=== PATIENT | female | born 1930 | race Caucasian/White ===

== ENCOUNTER 2018-03-22 16:33 | Inpatient (IN) ==
[2018-03-23] MEDS ORDERED: Mag Hydrox/Al Hydrox/Simeth 30 ML UDC PO PRN (18:34)
[2018-03-23] MEDS: *HR* OxyCODONE/APAP 5/325 TABLET PO PRN (20:32)
[2018-03-23] MEDS: Beclomethasone 40mcg MDI IH SCH (23:16)
[2018-03-24] MEDS: Acetaminophen 325 MG TABLET PO PRN (02:00)
[2018-03-24 05:44] LABS: Basophils % 0.2 %; Eosinophils # 0.3 K/mcL (0.0-0.6); Eosinophils % 3.1 %; Hematocrit 29.7 % (35.3-44.9); Hemoglobin 10.1 g/dL (11.5-15.4); Immature Granulocytes % 0.7 % (0-4); Lymphocytes # 0.7 K/mcL (0.6-4.6); Lymphocytes % 8.2 %; Mean Corpuscular Hemoglobin 29.8 pg (28.0-33.3); Mean Corpuscular Volume 87.6 fL (83.0-100.0); Mean Platelet Volume 8.4 fL (9.4-12.4); Monocytes # 0.7 K/mcL (0.0-1.3); Monocytes % 8.8 %; Neutrophils # 6.4 K/mcL (1.6-8.9); Platelet Count 264 K/mcL (140-400); Red Blood Count 3.39 M/mcL (3.82-4.97); Red Cell Distribution Width 12.7 % (11.5-14.5)
[2018-03-24 05:48] LABS: INR 1.2; Prothrombin Time 13.9 Seconds (9.4-12.1)
[2018-03-24 05:51] LABS: Activated Partial Thrombo Time 28.1 Seconds (26.0-36.0)
[2018-03-24 06:00] LABS: BUN/Creatinine Ratio 27 (6-26); Blood Urea Nitrogen 18 mg/dL (8-23); Calcium 8.6 mg/dL (8.6-10.3); Carbon Dioxide 27 mEq/L (23-29); Chloride 95 mEq/L (98-107); Glucose 95 mg/dL (70-105); Osmolality,Calculated 268 (280-300); Potassium 4.2 mEq/L (3.5-5.1); Sodium 128 mEq/L (136-145); eGFR For Non-African Americans > 60 (> 60)
[2018-03-24] MEDS: *HR* OxyCODONE/APAP 5/325 TABLET PO PRN ×3 (06:25→20:58)
[2018-03-24] MEDS: *HR* Heparin 5,000 UNIT/ML VIAL SQ SCH ×2 (06:26→18:01)
[2018-03-24] MEDS: Ascorbic Acid 500 MG TABLET PO SCH (08:47)
[2018-03-24] MEDS: Vitamin B Complex/Vit C/Vit E 1 EACH TABLET PO SCH (08:47)
[2018-03-24] MEDS: Aspirin Enteric Coated 81 MG Tablet PO SCH (08:48)
[2018-03-24] MEDS: Patient Taking Own Medication 1 EACH PO SCH (08:59)
--- NOTE | 2018-03-24 10:27 | Internal Med History&Physical ---
Date of Encounter: 03/24/18 Time of Encounter: 10:23 Assessment and Plan (1) S/P total hip arthroplasty Current visit: Yes Status: Acute Patient is admitted to rehabilitation for physical therapy secondary to deconditioning after right hip arthroplasty. Surgical incision appears dry and intact with dressing in place and small amount of ecchymosis surrounding incision. Noted slight swelling to entire right leg. Patient has been using abduction pillow while in bed. Patient complaints of increased pain today when mobilizing with physical therapy. We will review patient's current pain medications. We will continue on current therapy and continue with current plan of care Qualifiers: Laterality: right Qualified Code(s): Z96.641 - Presence of right artificial hip joint (2) Hypoxia Current visit: Yes Status: Acute Patient continues to require oxygen postoperatively after her right hip arthroplasty. Patient was placed on room air for several minutes his morning and her oxygen dropped to 88%. We will continue to mobilize patient and continue to wean oxygen as tolerated. Patient denies any productive cough or dyspnea. Afebrile. We will continue to use incentive spirometer hourly (3) HTN (hypertension) Current visit: Yes Status: Chronic Vital signs of been stable. We will continue with current medications. Qualifiers: Hypertension type: essential hypertension Qualified Code(s): I10 - Essential (primary) hypertension (4) Hyponatremia Current visit: Yes Status: Acute Today's sodium was 128. We will continue to monitor sodiums with serial labs over the next week. Patient remains asymptomatic. (5) Constipation Current visit: Yes Status: Acute Patient states no BM in 4 days. We will review her scheduled laxatives and give Dulcolax tabs now. Abdomen is slightly distended but remains soft and nontender. Patient denies any abdominal cramping. Patient states a history of constipation and that she uses Senokot at home Qualifiers: Constipation type: unspecified constipation type Qualified Code(s): K59.00 - Constipation, unspecified Internal Medicine - H&P: HPI Chief complaint: right hip replacement Admitted From: Intrahospital Transfer Plans for Post Hospital Care: Home History of present illness: Ms. Saleh is a 88 year old female who presented with right hip pain for approximately one week. The patient was found to have on the hip x-ray an acute transverse displaced and medial impacted fracture of the right femoral subcapital region. She was seen by orthopedics and it was decided to take the patient to the OR on 03/21/2018 for right hip hemiarthroplasty which was tolerated well. Patient did well postoperatively. The patient was started on aspirin by orthopedics which will be continued for the current time. The patient also has chronic somatic hyponatremia that should be monitored as an outpatient. The patient also developed symptoms of a urinary tract infection culture is currently pending. She was started empirically on Cipro 250 mg twice a day for 3 total days which improved her symptoms. Records show patient remained on oxygen postoperatively and continues to have mild hypoxia when on room air. Patient appears relaxed but complaints of increasing pain when mobilizing. Patient states while at rest that her pain is tolerable. Patient denies any dyspnea or productive cough. Denies any chest discomforts or palpitations. Patient continues to be on 2 L of oxygen which continues to be weaned postoperatively. She was placed on room air with a saturation of 88%. Patient also has complaint of constipation stating she has not had a BM in 4 days. Patient denies any abdominal cramping and states that she has been passing flatus. Abdomen is slightly distended, nontender and soft. She denies any dysuria. Afebrile. Patient has been participating in physical therapy starting today and states that it has been progressing well. Past Med Surg Social Fam HX - Past Medical History Medical history: arthritis, asthma, cancer, hyperlipidemia, hypertension Additional medical history: hypothyroidism, bleeding hemorrhoids, lumpectomy right breast 20 years ago Psychiatric history: no psych history - Past Surgical History Surgical History: knee replacement, other Additional surgical history: right knee, lumpectomy, left hip replacement - Social History Smoking Status: Never smoker Alcohol use: none Drug use: none - Family History Mother Living Status: Hx Family Cancer: Yes Father Hx Family Cardiac Disorders: Yes Internal Medicine - H&P: Meds Ascorbate Calcium [Vitamin C] 500 mg PO DAILY 08/23/17 [History] Beclomethasone Diprop 40mcg [QVAR 40 mcg] 1 puff IH BID 08/23/17 [History] Cartilage/Collagen/Bor/Hyalur [Joint Health Tablet] 1 tab PO BID 08/23/17 [ History] Carvedilol 12.5 mg PO BID 08/23/17 [History] Garlic [Daily Garlic Once-A-Day] 400 mg PO DAILY 08/23/17 [History] Gluc/Andrew-MSM#1/C/Quentin/Anand/Bor [Osteo Bi-Flex Caplet] 1 tab PO DAILY 08/23/17 [ History] Lecithin [Gram-O-Leci] 1,000 mg PO DAILY 08/23/17 [History] NIFEdipine [Afeditab Cr] 60 mg PO DAILY 08/23/17 [History] [place]-3/Dha/Epa/Fish Oil [[place] 3 500 Softgel] 1 tab PO DAILY 08/23/17 [History] Ubidecarenone [Co Q-10] 50 mg PO DAILY 08/23/17 [History] Vitamin B Complex [B Complex] 1 tab PO DAILY 08/23/17 [History] Levothyroxine [Synthroid] 75 mcg PO 0630 03/21/18 [History] Aspirin Enteric Coated [Aspirin EC] 162 mg PO DAILY 30 Days #30 tablet. [Rx] Ciprofloxacin [Cipro] 250 mg PO BID 2 Days #4 tablet 03/23/18 [Rx] MOM Conc [MILK OF MAGNESIA conc] 5 ml PO HS PRN [id number] 03/23/18 [Rx] OxyCODONE/APAP 5/325 [Percocet 5/325 MG] 1 each PO Q6HR PRN 3 Days #12 tablet [Rx] 3 Allergy/AdvReac Type Severity Reaction Status Date / Time No Known Allergies Allergy Verified 03/21/18 13:10 All Systems PM: A 10-system review of systems was performed and is negative for pertinent findings except as documented above in the HPI. - Constitutional Constitutional: as per HPI, no chills, no fever(s), no night sweats - EENT Eyes: no change in vision, no discharge, no pain, no photophobia Ears: no ear discharge, no ear pain, no tinnitus Nose, mouth and throat: no dysphagia, no nasal discharge, no neck pain, no sore throat - Cardiovascular Cardiovascular ROS IM: as per HPI, no chest pain, no diaphoresis, no dyspnea, no lightheadedness, no palpitations, no syncope - Respiratory Respiratory: as per HPI, no cough, no dyspnea, no wheezing, no excessive phlegm production - Gastrointestinal Gastrointestinal: as per HPI, no abdominal pain, no diarrhea, no hematemesis, no hematochezia, no melena, no nausea, no vomiting - Genitourinary Genitourinary: as per HPI, no change in urinary stream, no dysuria, no flank pain, no hematuria - Musculoskeletal Musculoskeletal ROS IM: no numbness, no tingling - Integumentary Integumentary IM: no rash, no unusual bruising - Neurological Neurological ROS: no confusion, no convulsions, no focal weakness, no numbness, no tingling, no tremor(s) - Hematologic/Lymphatic Hematologic/Lymphatic: no easy bruising - Constitutional Vitals: Temp Pulse Resp BP Pulse Ox 98 F 75 15 101/55 94 03/24/18 06:50 03/24/18 06:50 03/24/18 06:50 03/24/18 06:50 03/24/18 06:50 General appearance: Present: A&O X 3, pleasant - Head Head exam: Present: atraumatic, normocephalic - Eye Eye exam: Present: PERRL, conjuntiva pink, sclera anicteric Pupils: Present: PERRL - Neck Neck exam general surgery: Present: supple, trachea midline. Absent: lymphadenopathy - Respiratory Respiratory exam: Present: CTAB. Absent: accessory muscle use, rales, rhonchi, wheezes - Cardiovascular Cardiovascular exam: Present: RRR, +S1, +S2. Absent: diastolic murmur, gallop, rubs, systolic murmur - GI/Abdominal GI/Abdominal exam: Present: normal bowel sounds, soft, no peritoneal signs. Absent: distended, tenderness Additional comments: Abdomen is slightly distended but remains soft and nontender with bowel sounds heard to all quadrants. - Extremities Exam Extremities exam: Present: warm, radial pulses palpable and symmetrical. Absent : calf tenderness, cyanotic, pedal edema Additional comments: Right hip with dressing dry and intact. Noted ecchymosis surrounding surgical incision and slight edema to entire right leg. Abduction pillow in place - Neurological Exam Neurological exam: Present: CN II-XII intact, oriented X3, no focal deficits. Absent: pronater drift, facial droop, speech deficit - Skin Skin exam: Present: dry, intact Internal Med - H&P Results - Labs CBC & Chem 7: 03/24/18 05:40 03/24/18 05:40 Labs: Short CBC 03/24/18 Range/Units 05:40 WBC 8.1 (4.3-11.1) K/mcL Hgb 10.1 L (11.5-15.4) g/dL Hct 29.7 L (35.3-44.9) % Plt Count 264 (140-400) K/mcL Neutrophils # 6.4 (1.6-8.9) K/mcL BMP 03/24/18 05:40 Sodium 128 L Potassium 4.2 Chloride 95 L Carbon Dioxide 27 BUN 18 Creatinine 0.67 Glucose 95 Calcium 8.6
[2018-03-24] MEDS: NIFEdipine XL (24 HR) 60 MG TAB.ER.24 PO SCH (12:37)
[2018-03-24] MEDS: Beclomethasone 40mcg MDI IH SCH ×2 (12:37→21:02)
[2018-03-25] MEDS: *HR* OxyCODONE/APAP 5/325 TABLET PO PRN ×3 (04:39→17:41)
[2018-03-25] MEDS: *HR* Heparin 5,000 UNIT/ML VIAL SQ SCH ×2 (04:41→16:55)
[2018-03-25] MEDS: Vitamin B Complex/Vit C/Vit E 1 EACH TABLET PO SCH (08:33)
[2018-03-25] MEDS: Aspirin Enteric Coated 81 MG Tablet PO SCH (08:33)
[2018-03-25] MEDS: Ascorbic Acid 500 MG TABLET PO SCH (08:34)
[2018-03-25] MEDS: Patient Taking Own Medication 1 EACH PO SCH (08:36)
[2018-03-25] MEDS: NIFEdipine XL (24 HR) 60 MG TAB.ER.24 PO SCH (08:39)
[2018-03-25] MEDS: Beclomethasone 40mcg MDI IH SCH ×2 (08:39→20:38)
--- NOTE | 2018-03-25 10:22 | Internal Med Progress Note ---
Date of Encounter: 03/25/18 Time of Encounter: 10:20 - Assessment and plan (1) S/P total hip arthroplasty Current Visit: Yes Status: Acute Assessment and plan: Right hip surgical incision appears healthy and intact with moderate amount of ecchymosis surrounding the incision. noted slight edema to right entire leg. patient continues to have moderate pain during mobilization but states that her pain is tolerable with current medications ordered. we will continue with current physical therapy and mobilization. Qualifiers: Laterality: right Qualified Code(s): Z96.641 - Presence of right artificial hip joint (2) HTN (hypertension) Current Visit: Yes Status: Chronic Qualifiers: Hypertension type: essential hypertension Qualified Code(s): I10 - Essential (primary) hypertension (3) Hyponatremia Current Visit: Yes Status: Acute Assessment and plan: No acute issues. Patient's last sodium was 128. We will reorder labs from the morning to follow. Patient remains asymptomatic. (4) Constipation Current Visit: Yes Status: Acute Assessment and plan: Patient continues to have issues with constipation with no BM after starting on MiraLAX. We will give patient a bottle of mag citrate today and monitor for results. Abdomen remains negative on exam and patient denies any abdominal cramping. Qualifiers: Constipation type: unspecified constipation type Qualified Code(s): K59.00 - Constipation, unspecified - Time Spent With Patient less than 15 minutes - Subjective Interval history: Patient appears relaxed and currently complains of slight pain to her right hip surgical site, which she states increased after her physical therapy session this morning. Patient states that her pain is tolerable with current medications. Patient states she continues not to have any BM with current changes in her scheduled laxatives. Denies any abdominal cramping - Constitutional Vitals: Temp Pulse Resp BP Pulse Ox 98.5 F 77 16 112/67 96 03/25/18 07:00 03/25/18 07:00 03/25/18 07:00 03/25/18 07:00 03/25/18 07:00 General appearance: Present: A&O X 3, pleasant - Head Head exam: Present: atraumatic, normocephalic - Eye Eye exam: Present: PERRL, conjuntiva pink, sclera anicteric Pupils: Present: PERRL - Neck Neck exam general surgery: Present: supple, trachea midline. Absent: lymphadenopathy - Respiratory Respiratory exam: Present: CTAB. Absent: accessory muscle use, rales, rhonchi, wheezes - Cardiovascular Cardiovascular exam: Present: RRR, +S1, +S2. Absent: diastolic murmur, gallop, rubs, systolic murmur - GI/Abdominal GI/Abdominal exam: Present: normal bowel sounds, soft, no peritoneal signs. Absent: distended, tenderness - Extremities Exam Extremities exam: Present: warm, radial pulses palpable and symmetrical. Absent : calf tenderness, cyanotic, pedal edema Additional comments: Right hip surgical site appears healthy and intact with moderate ecchymosis noted surrounding the incision. Noted slight edema to the entire right leg. - Neurological Exam Neurological exam: Present: CN II-XII intact, oriented X3, no focal deficits. Absent: pronater drift, facial droop, speech deficit - Skin Skin exam: Present: dry, intact Internal Medicine: Result - Labs CBC & Chem 7: 03/24/18 05:40 03/24/18 05:40 - ABG Interpretation ABG results: PT/INR, D-dimer PT 13.9 Seconds (9.4-12.1) H 03/24/18 05:40 Consult Discharge Plan - Plan Referrals: Jer Ramirez MD [Primary Care Provider] -
[2018-03-25] MEDS: Acetaminophen 325 MG TABLET PO PRN (14:43)
[2018-03-25] MEDS: Sennosides 8.6 MG TABLET PO SCH (20:34)
[2018-03-26 05:35] LABS: Hemoglobin 9.7 g/dL (11.5-15.4); Mean Corpuscular HGB Conc 33.4 g/dL (31.6-35.5); Mean Corpuscular Hemoglobin 29.5 pg (28.0-33.3); Mean Corpuscular Volume 88.1 fL (83.0-100.0); Mean Platelet Volume 8.2 fL (9.4-12.4); Platelet Count 373 K/mcL (140-400); Red Blood Count 3.29 M/mcL (3.82-4.97); Red Cell Distribution Width 12.9 % (11.5-14.5)
[2018-03-26] MEDS: *HR* Heparin 5,000 UNIT/ML VIAL SQ SCH ×2 (05:49→18:48)
[2018-03-26 05:55] LABS: Alanine Aminotransferase 8 Units/L (7-52); Albumin 2.7 g/dL (3.5-5.7); Albumin/Globulin Ratio 1.1 (1.1-2.2); Alkaline Phosphatase 74 Units/L (34-104); Aspartate Amino Transferase 21 Units/L (13-39); BUN/Creatinine Ratio 30 (6-26); Bilirubin,Total 0.5 mg/dL (0.3-1.0); Blood Urea Nitrogen 18 mg/dL (8-23); Calcium 8.7 mg/dL (8.6-10.3); Carbon Dioxide 29 mEq/L (23-29); Chloride 97 mEq/L (98-107); Globulin 2.4 g/dL (2.4-3.5); Glucose 104 mg/dL (70-105); Magnesium 2.5 mg/dL (1.6-2.6); Osmolality,Calculated 276 (280-300); Potassium 3.8 mEq/L (3.5-5.1); Sodium 132 mEq/L (136-145); Total Protein 5.1 g/dL (6.4-8.9); eGFR For Non-African Americans > 60 (> 60)
[2018-03-26] MEDS: *HR* OxyCODONE/APAP 5/325 TABLET PO PRN ×3 (06:14→22:41)
[2018-03-26] MEDS: Acetaminophen 325 MG TABLET PO PRN (10:26)
[2018-03-26] MEDS: Aspirin Enteric Coated 81 MG Tablet PO SCH (10:26)
[2018-03-26] MEDS: Vitamin B Complex/Vit C/Vit E 1 EACH TABLET PO SCH (10:26)
[2018-03-26] MEDS: NIFEdipine XL (24 HR) 60 MG TAB.ER.24 PO SCH (10:26)
[2018-03-26] MEDS: Sennosides 8.6 MG TABLET PO SCH ×2 (10:27→22:41)
[2018-03-26] MEDS: Ascorbic Acid 500 MG TABLET PO SCH (10:27)
[2018-03-26] MEDS: Patient Taking Own Medication 1 EACH PO SCH (10:27)
--- NOTE | 2018-03-26 11:23 | Internal Med Progress Note ---
Date of Encounter: 03/26/18 Time of Encounter: 11:00 - Assessment and plan (1) HTN (hypertension) Current Visit: Yes Status: Chronic Qualifiers: Hypertension type: essential hypertension Qualified Code(s): I10 - Essential (primary) hypertension (2) Hyponatremia Current Visit: Yes Status: Acute Assessment and plan: Improving, will continue to monitor. (3) Constipation Current Visit: Yes Status: Acute Assessment and plan: Continue BM with BID Miralax for now. Qualifiers: Constipation type: unspecified constipation type Qualified Code(s): K59.00 - Constipation, unspecified (4) S/P total hip arthroplasty Current Visit: Yes Status: Acute Assessment and plan: - Continue routine care/management per PT. - Continue current pain regimen. Qualifiers: Laterality: right Qualified Code(s): Z96.641 - Presence of right artificial hip joint - Time Spent With Patient less than 15 minutes - Subjective Interval history: Right hip hurts, but overall adequately controlled with our current pain regimen. - Constitutional Vitals: Temp Pulse Resp BP Pulse Ox 98.4 F 69 17 120/63 19 03/26/18 07:31 03/26/18 07:31 03/26/18 07:31 03/26/18 07:31 03/26/18 07:31 General appearance: Present: A&O X 3, pleasant Exam: Gen: A&Ox3, NAD. HEENT: NCAT. Neck: No palpable lymphadenopathy or thyromegaly. CV: RRR, S1S2. No murmur. Capillary refill < 2 seconds. Pulm: CTAB. Abd: (+)BS. NDNT. Neuro: RLE weakness due to right hip pain, otherwise non-focal. Skin: No rash. Ext: 1(+) pitting edema in RLE. Internal Medicine: Result - Labs CBC & Chem 7: 03/26/18 05:25 03/26/18 05:25 Labs: Short CBC 03/26/18 Range/Units 05:25 WBC 6.9 (4.3-11.1) K/mcL Hgb 9.7 L (11.5-15.4) g/dL Hct 29.0 L (35.3-44.9) % Plt Count 373 (140-400) K/mcL BMP 03/26/18 05:25 Sodium 132 L Potassium 3.8 Chloride 97 L Carbon Dioxide 29 BUN 18 Creatinine 0.60 Glucose 104 Calcium 8.7 Liver Function 03/26/18 Range/Units 05:25 Total Bilirubin 0.5 (0.3-1.0) mg/dL AST 21 (13-39) Units/L ALT 8 (7-52) Units/L Alkaline Phosphatase 74 (34-104) Units/L Albumin 2.7 L (3.5-5.7) g/dL - ABG Interpretation ABG results: PT/INR, D-dimer PT 13.9 Seconds (9.4-12.1) H 03/24/18 05:40 Consult Discharge Plan - Plan Referrals: Jer Ramirez MD [Primary Care Provider] -
[2018-03-26] MEDS: Beclomethasone 40mcg MDI IH SCH ×2 (14:55→22:42)
[2018-03-27] MEDS: *HR* OxyCODONE/APAP 5/325 TABLET PO PRN ×2 (06:32→20:06)
[2018-03-27] MEDS: *HR* Heparin 5,000 UNIT/ML VIAL SQ SCH ×2 (06:32→18:01)
--- NOTE | 2018-03-27 07:40 | Internal Med Progress Note ---
Date of Encounter: 03/27/18 Time of Encounter: 07:30 - Assessment and plan (1) HTN (hypertension) Current Visit: Yes Status: Chronic Qualifiers: Hypertension type: essential hypertension Qualified Code(s): I10 - Essential (primary) hypertension (2) Hyponatremia Current Visit: Yes Status: Acute Assessment and plan: Improving, will continue to monitor. (3) Constipation Current Visit: Yes Status: Acute Assessment and plan: Continue BM with BID Miralax for now. Qualifiers: Constipation type: unspecified constipation type Qualified Code(s): K59.00 - Constipation, unspecified (4) S/P total hip arthroplasty Current Visit: Yes Status: Acute Assessment and plan: - Continue routine care/management per PT. - Continue current pain regimen. Qualifiers: Laterality: right Qualified Code(s): Z96.641 - Presence of right artificial hip joint - Time Spent With Patient less than 15 minutes - Subjective Interval history: Feeling "fine." No particular concern. - Constitutional Vitals: Temp Pulse Resp BP Pulse Ox 98.5 F 71 14 124/68 94 03/27/18 06:47 03/27/18 06:47 03/27/18 06:47 03/27/18 06:47 03/27/18 06:47 General appearance: Present: A&O X 3, pleasant Exam: Gen: A&Ox3, NAD. HEENT: NCAT. Neck: No palpable lymphadenopathy or thyromegaly. CV: RRR, S1S2. 1/6, systolic murmur appreciated. Capillary refill < 2 seconds. Pulm: CTAB. Abd: (+)BS. NDNT. Neuro: RLE weakness due to right hip pain, otherwise non-focal. Skin: No rash. Ext: 1(+) pitting edema in RLE. Internal Medicine: Result - Labs CBC & Chem 7: 03/26/18 05:25 03/26/18 05:25 - ABG Interpretation ABG results: PT/INR, D-dimer PT 13.9 Seconds (9.4-12.1) H 03/24/18 05:40 Consult Discharge Plan - Plan Referrals: Jer Ramirez MD [Primary Care Provider] -
[2018-03-27] MEDS: Acetaminophen 325 MG TABLET PO PRN (12:23)
[2018-03-27] MEDS: Vitamin B Complex/Vit C/Vit E 1 EACH TABLET PO SCH (12:23)
[2018-03-27] MEDS: NIFEdipine XL (24 HR) 60 MG TAB.ER.24 PO SCH (12:23)
[2018-03-27] MEDS: Sennosides 8.6 MG TABLET PO SCH ×2 (12:23→20:06)
[2018-03-27] MEDS: Aspirin Enteric Coated 81 MG Tablet PO SCH (12:23)
[2018-03-27] MEDS: Ascorbic Acid 500 MG TABLET PO SCH (12:24)
[2018-03-27] MEDS: Patient Taking Own Medication 1 EACH PO SCH (12:24)
[2018-03-27] MEDS: Beclomethasone 40mcg MDI IH SCH ×2 (14:25→20:08)
[2018-03-28] MEDS: *HR* OxyCODONE/APAP 5/325 TABLET PO PRN ×3 (05:14→21:43)
[2018-03-28] MEDS: *HR* Heparin 5,000 UNIT/ML VIAL SQ SCH ×2 (05:15→17:40)
[2018-03-28] MEDS: Aspirin Enteric Coated 81 MG Tablet PO SCH (08:14)
[2018-03-28] MEDS: Sennosides 8.6 MG TABLET PO SCH ×2 (08:15→20:09)
[2018-03-28] MEDS: Patient Taking Own Medication 1 EACH PO SCH (08:15)
[2018-03-28] MEDS: NIFEdipine XL (24 HR) 60 MG TAB.ER.24 PO SCH (08:16)
[2018-03-28] MEDS: Ascorbic Acid 500 MG TABLET PO SCH (08:17)
[2018-03-28] MEDS: Vitamin B Complex/Vit C/Vit E 1 EACH TABLET PO SCH (08:17)
[2018-03-28] MEDS: Beclomethasone 40mcg MDI IH SCH ×2 (08:17→20:09)
[2018-03-28 09:45] LABS: Basophils # 0.1 K/mcL (0.0-0.2); Basophils % 0.8 %; Eosinophils # 0.2 K/mcL (0.0-0.6); Hematocrit 34.8 % (35.3-44.9); Hemoglobin 11.3 g/dL (11.5-15.4); INR 1.1; Immature Granulocytes % 5.9 % (0-4); Lymphocytes # 1.5 K/mcL (0.6-4.6); Lymphocytes % 19.3 %; Mean Corpuscular HGB Conc 32.5 g/dL (31.6-35.5); Mean Corpuscular Hemoglobin 29.3 pg (28.0-33.3); Mean Corpuscular Volume 90.2 fL (83.0-100.0); Mean Platelet Volume 8.7 fL (9.4-12.4); Monocytes # 0.7 K/mcL (0.0-1.3); Monocytes % 8.8 %; Neutrophils # 4.8 K/mcL (1.6-8.9); Platelet Count 580 K/mcL (140-400); Prothrombin Time 12.5 Seconds (9.4-12.1); Red Blood Count 3.86 M/mcL (3.82-4.97); Red Cell Distribution Width 13.4 % (11.5-14.5); Segmented Neutrophils % 62.2 %
[2018-03-28 09:48] LABS: Activated Partial Thrombo Time 32.5 Seconds (26.0-36.0)
--- NOTE | 2018-03-28 09:56 | Internal Med Progress Note ---
Date of Encounter: 03/28/18 Time of Encounter: 09:30 - Assessment and plan (1) HTN (hypertension) Current Visit: Yes Status: Chronic Qualifiers: Hypertension type: essential hypertension Qualified Code(s): I10 - Essential (primary) hypertension (2) Hyponatremia Current Visit: Yes Status: Acute Assessment and plan: Improving, will continue to monitor. (3) Constipation Current Visit: Yes Status: Acute Assessment and plan: Continue BID Senna for now. Last BM was on Wednesday and the patient is asymptomatic at this time. Will consider Miralax and/or mag citrate PRN as appropriate. Qualifiers: Constipation type: unspecified constipation type Qualified Code(s): K59.00 - Constipation, unspecified (4) S/P total hip arthroplasty Current Visit: Yes Status: Acute Assessment and plan: - Continue routine care/management per PT. - Continue current pain regimen. Qualifiers: Laterality: right Qualified Code(s): Z96.641 - Presence of right artificial hip joint - Time Spent With Patient less than 15 minutes - Subjective Interval history: Feeling "good." Last BM was on Wednesday. - Constitutional Vitals: Temp Pulse Resp BP Pulse Ox 99.0 F 72 16 123/70 93 03/28/18 06:00 03/28/18 06:00 03/28/18 06:00 03/28/18 06:00 03/28/18 06:00 General appearance: Present: A&O X 3, pleasant Exam: Gen: A&Ox3, NAD. HEENT: NCAT. Neck: No palpable lymphadenopathy or thyromegaly. CV: RRR, S1S2. 1/6, systolic murmur appreciated. Capillary refill < 2 seconds. Pulm: CTAB. Abd: (+)BS. NDNT. Neuro: RLE weakness due to right hip pain, otherwise non-focal. Skin: No rash. Ext: 1(+) pitting edema in RLE. Internal Medicine: Result - Labs CBC & Chem 7: 03/26/18 05:25 03/26/18 05:25 - ABG Interpretation ABG results: PT/INR, D-dimer PT 13.9 Seconds (9.4-12.1) H 03/24/18 05:40 Consult Discharge Plan - Plan Referrals: Jer Ramirez MD [Primary Care Provider] -
[2018-03-28 10:17] LABS: BUN/Creatinine Ratio 20 (6-26); Blood Urea Nitrogen 12 mg/dL (8-23); Calcium 9.1 mg/dL (8.6-10.3); Carbon Dioxide 29 mEq/L (23-29); Chloride 99 mEq/L (98-107); Glucose 97 mg/dL (70-105); Osmolality,Calculated 280 (280-300); Potassium 3.8 mEq/L (3.5-5.1); Sodium 135 mEq/L (136-145); eGFR For Non-African Americans > 60 (> 60)
[2018-03-29] MEDS: *HR* Heparin 5,000 UNIT/ML VIAL SQ SCH ×2 (05:17→18:09)
[2018-03-29] MEDS: Aspirin Enteric Coated 81 MG Tablet PO SCH (08:23)
[2018-03-29] MEDS: Sennosides 8.6 MG TABLET PO SCH ×2 (08:23→20:46)
[2018-03-29] MEDS: Vitamin B Complex/Vit C/Vit E 1 EACH TABLET PO SCH (08:23)
[2018-03-29] MEDS: NIFEdipine XL (24 HR) 60 MG TAB.ER.24 PO SCH (08:23)
[2018-03-29] MEDS: *HR* OxyCODONE/APAP 5/325 TABLET PO PRN ×3 (08:23→20:46)
[2018-03-29] MEDS: Ascorbic Acid 500 MG TABLET PO SCH (08:24)
[2018-03-29] MEDS: Beclomethasone 40mcg MDI IH SCH ×2 (08:34→20:46)
[2018-03-29] MEDS: Patient Taking Own Medication 1 EACH PO SCH (08:36)
--- NOTE | 2018-03-29 11:16 | Internal Med Progress Note ---
Date of Encounter: 03/29/18 Time of Encounter: 06:00 - Assessment and plan (1) S/P total hip arthroplasty Current Visit: Yes Status: Acute Assessment and plan: Actually this is status post right unipolar hip replacement. She is doing fine without sign of complication. She is not progressing well with therapy. Qualifiers: Laterality: right Qualified Code(s): Z96.641 - Presence of right artificial hip joint (2) HTN (hypertension) Current Visit: Yes Status: Chronic Assessment and plan: Marginally elevated today, will follow. Qualifiers: Hypertension type: essential hypertension Qualified Code(s): I10 - Essential (primary) hypertension (3) HLD (hyperlipidemia) Current Visit: No Status: Chronic Assessment and plan: Clinically stable. Qualifiers: Hyperlipidemia type: unspecified Qualified Code(s): E78.5 - Hyperlipidemia , unspecified (4) Hypothyroidism Current Visit: No Status: Chronic Assessment and plan: Clinically stable. We will continue home regimen and follow. Qualifiers: Hypothyroidism type: unspecified Qualified Code(s): E03.9 - Hypothyroidism , unspecified (5) Acute blood loss anemia Current Visit: No Status: Acute Assessment and plan: Clinically stable. Asymptomatic, currently. - Subjective Interval history: Patient with no complaints. She is doing well per therapy. She is able to function in the room, by herself, according to therapy. She states that she is moving her bowels, acceptably. Patient has no complaint of chest discomfort, dyspnea, orthopnea, palpitations, nausea or vomiting, constipation or diarrhea, other changes in bowel habits, difficulty with urination, rash or itching, or other new complaints, except as mentioned above. Review of systems is otherwise negative. I discussed management of her care with nursing staff. - Constitutional Vitals: Temp Pulse Resp BP Pulse Ox 97.9 F 69 16 156/75 96 03/29/18 08:38 03/29/18 08:38 03/29/18 08:38 03/29/18 08:38 03/29/18 08:38 General appearance: Present: pleasant Exam: Examination: (Except as mentioned above): General: In no apparent distress. Alert and oriented 3. Nondiaphoretic. Head: Atraumatic and normocephalic. Respiratory: No use of accessory muscles. Lungs are clear throughout. Normal airflow. Cardiovascular: Regular rate and rhythm without murmur appreciated. Abdomen: Bowel sounds are normal. No hepatosplenomegaly mass or tenderness appreciated. Obese and therefore difficult to palpate deeply. Extremities: No cyanosis clubbing or edema. Skin: Warm and non-diaphoretic with no new lesions noted. Internal Medicine: Result - Labs CBC & Chem 7: 03/28/18 08:30 03/28/18 08:30 - ABG Interpretation ABG results: PT/INR, D-dimer PT 12.5 Seconds (9.4-12.1) H 03/28/18 08:30 Consult Discharge Plan - Plan Referrals: Jer Ramirez MD [Primary Care Provider] -
[2018-03-30] MEDS: *HR* OxyCODONE/APAP 5/325 TABLET PO PRN ×2 (02:53→08:58)
[2018-03-30] MEDS: *HR* Heparin 5,000 UNIT/ML VIAL SQ SCH (06:03)
[2018-03-30] MEDS: Sennosides 8.6 MG TABLET PO SCH (08:20)
[2018-03-30] MEDS: Ascorbic Acid 500 MG TABLET PO SCH (08:20)
[2018-03-30] MEDS: Aspirin Enteric Coated 81 MG Tablet PO SCH (08:20)
[2018-03-30] MEDS: Vitamin B Complex/Vit C/Vit E 1 EACH TABLET PO SCH (08:20)
[2018-03-30] MEDS: NIFEdipine XL (24 HR) 60 MG TAB.ER.24 PO SCH (08:20)
[2018-03-30] MEDS: Beclomethasone 40mcg MDI IH SCH (08:21)
[2018-03-30] MEDS: Patient Taking Own Medication 1 EACH PO SCH (09:00)
--- NOTE | 2018-03-30 09:52 | Discharge Summary ---
Orders not resulted at time of discharge: Pending orders 04/04/18 04:00 Activated Partial Thrombo Time [COAG] MO Basic Metabolic Panel MO Complete Blood Count [HEME] MO Prothrombin Time INR [COAG] MO 04/11/18 04:00 Activated Partial Thrombo Time [COAG] MO Basic Metabolic Panel MO Complete Blood Count [HEME] MO Prothrombin Time INR [COAG] MO 04/18/18 04:00 Activated Partial Thrombo Time [COAG] MO Basic Metabolic Panel MO Complete Blood Count [HEME] MO Prothrombin Time INR [COAG] MO 04/25/18 04:00 Activated Partial Thrombo Time [COAG] MO Basic Metabolic Panel MO Complete Blood Count [HEME] MO Prothrombin Time INR [COAG] MO 05/02/18 04:00 Activated Partial Thrombo Time [COAG] MO Basic Metabolic Panel MO Complete Blood Count [HEME] MO Prothrombin Time INR [COAG] MO Date of Encounter: 03/30/18 Time of Encounter: 09:49 - Discharge Diagnosis (1) S/P total hip arthroplasty Priority: Primary Status: Acute Comments: [facility]ure outpatient physical therapy and occupational therapy. Follow up with PCP as scheduled in 1 to [address] Priest on April 05. prescriptions given for percocet 5/325mg every 6hrs prn pain and ASA 162mg daily Qualifiers: Laterality: right Qualified Code(s): Z96.641 - Presence of right artificial hip joint (2) HTN (hypertension) Priority: Secondary Status: Chronic Comments: Controlled with current medication. Follow up with PCP. Qualifiers: Hypertension type: essential hypertension Qualified Code(s): I10 - Essential (primary) hypertension Hospital course: Ms. Saleh is a 88 year old female Discharge discussed with: patient, nurse, social work - Time Spent with Patient Total time spent providing and/or coordinating discharge services: Less than 30 minutes - Discharge Medications Home Medications: Ascorbate Calcium [Vitamin C] 500 mg PO DAILY 08/23/17 [History] Beclomethasone Diprop 40mcg [QVAR 40 mcg] 1 puff IH BID 08/23/17 [History] Cartilage/Collagen/Bor/Hyalur [Joint Health Tablet] 1 tab PO BID 08/23/17 [ History] Carvedilol 12.5 mg PO BID 08/23/17 [History] Garlic [Daily Garlic Once-A-Day] 400 mg PO DAILY 08/23/17 [History] Gluc/Andrew-MSM#1/C/Quentin/Anand/Bor [Osteo Bi-Flex Caplet] 1 tab PO DAILY 08/23/17 [ History] Lecithin [Gram-O-Leci] 1,000 mg PO DAILY 08/23/17 [History] NIFEdipine [Afeditab Cr] 60 mg PO DAILY 08/23/17 [History] [place]-3/Dha/Epa/Fish Oil [[place] 3 500 Softgel] 1 tab PO DAILY 08/23/17 [History] Ubidecarenone [Co Q-10] 50 mg PO DAILY 08/23/17 [History] Vitamin B Complex [B Complex] 1 tab PO DAILY 08/23/17 [History] Levothyroxine [Synthroid] 75 mcg PO 0630 03/21/18 [History] MOM Conc [MILK OF MAGNESIA conc] 5 ml PO HS PRN ud.liq 03/23/18 [Rx] OxyCODONE/APAP 5/325 [Percocet 5/325 MG] 1 each PO Q6HR PRN 3 Days #12 tablet [Rx] Acetaminophen [Tylenol] 650 mg PO Q4HR PRN tablet 03/30/18 [Rx] Allergies/Adverse Reactions: 3 Allergy/AdvReac Type Severity Reaction Status Date / Time No Known Allergies Allergy Verified 03/21/18 13:10 Date of admission: 03/23/18 18:12 Primary care physician: Jer Ramirez MD Consults: 03/23/18 18:36 Consult to Occupational Therapy [CONS] Routine Comment: Evaluate, develop and implement POC Reason for Consult: s/p right hip kenny Does patient have active BEDREST order?: No Is patient medically & hemodynamically stable?: Yes Patient assessed for mobility or mobilized this visit?: Yes Consult to Physical Therapy [CONS] Routine Comment: Evaluate, develop and implement POC Reason for Consult: s/p right hip kenny Does patient have active BEDREST order?: No Is patient medically & hemodynamically stable?: No Patient assessed for mobility or mobilized this visit?: Yes Consult to Recreational Therapy [CONS] Routine Comment: Evaluate, develop and implement POC Consult to Leather Products Supervisor [CONS] Routine Reason for SW Consult: s/p right hip kenny Discharging clinician: Mark Enriquez Anticipated date of discharge: 03/30/18 - Constitutional Vitals: Temp Pulse Resp BP Pulse Ox 98.2 F 75 17 146/72 93 03/30/18 06:44 03/30/18 06:44 03/30/18 06:44 03/30/18 06:44 03/30/18 06:44 General appearance: Present: A&O X 3, pleasant, no acute distress, answers questions appropriately - Head Head exam: Present: atraumatic, normocephalic - Eye Eye exam: Present: PERRL, conjuntiva pink, sclera anicteric Pupils: Present: PERRL - Neck Neck exam general surgery: Present: supple, trachea midline. Absent: lymphadenopathy - Respiratory Respiratory exam: Present: CTAB. Absent: accessory muscle use, rales, rhonchi, wheezes - Cardiovascular Cardiovascular exam: Present: RRR, +S1, +S2. Absent: diastolic murmur, gallop, rubs, systolic murmur - GI/Abdominal GI/Abdominal exam: Present: normal bowel sounds, soft, no peritoneal signs. Absent: distended, tenderness - Extremities Exam Extremities exam: Present: warm, radial pulses palpable and symmetrical. Absent : calf tenderness, cyanotic, pedal edema - Incison Comments: Right hip incision dressing intact with small amount of serous drainage on proximal end. - Neurological Exam Neurological exam: Present: CN II-XII intact, oriented X3, no focal deficits. Absent: pronater drift, facial droop, speech deficit - Skin Skin exam: Present: dry, intact - Patient Status Disposition: Home, Self-Care Condition: Good Functional capacity at discharge: uses cane/walker Overall status at discharge: patient is progressing back to baseline - Discharge Instructions Instructions: Precautions after Total Joint Replacement Surgery (DC) Follow Up With: Jonn Priest MD [Partnered Physician] - 05/04/18 3:40 pm (folow up appoitment with surgeon) Vika Cordova PAC [Physician Plastic Bubble Packer] - 04/07/18 1:00 pm (follow up appointment with surgery) Jer Ramirez MD [Primary Care Provider] - 04/11/18 1:30 pm (follow up appointment with physician) - Diet and Activity Activity: as per physical therapy Diet: advance to your usual diet
[2018-03-31 06:42] VITALS: BP 146/72
== END 2018-03-30 11:30 | disposition home or self-care (01) | DRG 560 ==
LOC: INPGRE 03-23 18:12